=== PATIENT | male | born 1960 | race Two or more races ===

== ENCOUNTER → 2022-01-01 | Outpatient (CLI) | payer OTHER ==
[~2022-01-01] MED LIST: ALLO300T2 PO; AMLO-213 PO; CARV12.52 PO; DOCU100C36 PO; GLIP2.5T3 PO; LOSA100T31 PO; METF-442 PO; OMEP40CA21 PO; OXYC1TAB12 PO; RIVA10TA PO; SIMV-49 PO
== END | disposition home or self-care (01) ==
LOC: LAB 12:49
PROVIDERS: ATTEND Specialist
DX: Z01.812 Encounter for preprocedural laboratory examination (principal); Z20.822 Contact with and (suspected) exposure to COVID-19
CPT/HCPCS: U0003; C9803

== ENCOUNTER 2022-01-08 05:33 | Inpatient (IN) | payer OTHER ==
[~2022-01-08] VITALS: Ht 188 cm; Wt 131.5 kg
--- NOTE | 2022-01-08 06:00 | NUR ---
MS ACID TANK CLEANER NOTES PT WALKED IN TO THE UNIT FROM HOME AT 0547 UNDER THE CARE OF DR. CHRISTINA FOR HIS SCHEDULED RIGHT TOTAL KNEE ARTHROPLASTY. PT IS A/O X4, ABLE TO MAKE NEEDS KNOWN. NO SOB OR NOTED. TOLERATING ROOM AIR WELL. NOT IN APPARENT DISTRESS. NO C/O PAIN OR DISCOMFORT AT THIS TIME. SKIN INTACT. OBTAINED CONSENT. PRE-OP TEACHING GIVEN. ALL NEEDS ATTENDED. SAFETY MEASURES IN PLACED.
[2022-01-08] MEDS ORDERED: MAGNESIUM HYDROXIDE 30 ML UDC PO PRN ×2 (06:30→22:00)
[2022-01-08] MEDS ORDERED: oxyCODONE IR immediate release 5 MG PO PRN (06:30)
[2022-01-08] MEDS ORDERED: MAG HYDROX/AL HYDROX/SIMETH 30 ML UDC PO PRN ×2 (06:30→13:00)
[2022-01-08] MEDS ORDERED: ONDANSETRON HCL/PF 4 MG/2 ML VIAL IV PRN (06:30)
[2022-01-08] MEDS ORDERED: diphenhydrAMINE HCL 25 MG CAPSULE PO PRN (06:30)
[2022-01-08] MEDS ORDERED: CLONIDINE HCL 0.1 MG TABLET PO PRN (06:30)
[2022-01-08] MEDS ORDERED: FENTANYL PF 100MCG/2ML AMPUL ONE ×2 (06:51)
[2022-01-08] MEDS ORDERED: HYDROMORPHONE INJ 2 MG/ML DISP.SYRIN ONE (06:52)
[2022-01-08] MEDS ORDERED: FAMOTIDINE/PF INJ 20 MG/2 ML VIAL IV ONE (06:52)
[2022-01-08] MEDS ORDERED: MIDAZOLAM HCL 2 MG/2ML VIAL ONE (06:52)
[2022-01-08] MEDS ORDERED: SUCCINYLCHOLINE CHLORIDE 20 MG/ML VIAL ONE (06:53)
[2022-01-08] MEDS ORDERED: TRANEXAMIC ACID 3,000 MG in SODIUM CHLORIDE IRRIG SOLUTION 70 ML IR ONE (07:00)
--- NOTE | 2022-01-08 07:00 | NUR ---
MS RN NOTES PT WAS TRANSFERRED TO OR.
--- NOTE | 2022-01-08 07:30 | NUR ---
RN NOTES PATIENT LEFT UNIT FOR SURGERY AT 720 AM.
[2022-01-08] MEDS ORDERED: IV LR 1000 ML 1,000 ML IV PRN (11:00)
--- NOTE | 2022-01-08 11:00 | NUR ---
RN NOTES PATIENT CAME BACK FROM RIGHT KNEE SURGERY AT 1050 AM WITH THE OR NURSE MOLINA. VITAL SIGNS 131/68, P=79, O2 =97%EA. VITAL SIGNS IN NORMAL RANGES. COMPLAINS OF PAIN 5/10 OXYCODONE 10 MG GIVEN. ALERT AND ORIENTED TIMES 4. NO DISTRESS NOTED . NO SOB NOTED. AT BED SIDE. OFFERED LIQUIDS. ON LR 100ML/HR. WILL CONTINUE TO MONITOR.
[2022-01-08] MEDS: oxyCODONE IR immediate release 5 MG PO PRN (11:07)
[2022-01-08 12:00] VITALS: BP 127/60
[2022-01-08] MEDS: HYDROMORPHONE 1 MG/1 ML DISP.SYRIN SQ PRN (12:45)
[2022-01-08] MEDS ORDERED: DEXTROSE 50%-WATER 50 ML DISP.SYRIN IV PRN (13:00)
[2022-01-08] MEDS ORDERED: ONDANSETRON HCL/PF 4 MG/2 ML VIAL IVP PRN (13:00)
[2022-01-08] MEDS ORDERED: Z GUARD REMEDY 4 OZ OINT TP PRN (13:00)
[2022-01-08] MEDS ORDERED: ACETAMINOPHEN 325 MG TABLET PO PRN (13:00)
[2022-01-08] MEDS: HYDROMORPHONE 1 MG/1 ML DISP.SYRIN IM/IV/SC PRN ×3 (15:49→20:40)
[2022-01-08 16:25] VITALS: BP 122/71
[2022-01-08] MEDS: ANCEF 1 GM/50 ML D5W IV SCH ×2 (16:29)
[2022-01-08] MEDS: DOCUSATE SODIUM 100 MG CAPSULE PO SCH (16:51)
[2022-01-08] MEDS: BLOOD SUGAR DIAGNOSTIC 1 EACH STRIP IN SCH ×2 (17:14→22:31)
--- NOTE | 2022-01-08 17:19 | NUR ---
RN NOTES BLOOD SUGAR NOTED 208. PATIENT REFUSED INSULIN.
--- NOTE | 2022-01-08 19:15 | NUR ---
MS RN NOTES RECEIVED LAYING ON BED,A/O X4,S/P RIGHT TOTAL KNEE ARTHROPLASTY TODAY 01/08/[address] CHRISTINA,DRESSING INTACT AND DRY,SCD IN USED ON LEFT LEG,PRESENT IVF LR AT 100ML/HR RATE INFUSING WELL ON RIGHT AC SALINE LOCK VIA IV PUMP.WILL MONITOR FOR PAIN,CALL LIGHT IN REACH,NEEDS ANTICIPATED.
--- NOTE | 2022-01-08 19:30 | NUR ---
MS RN CLOSING NOTES PATIENT RESTING ON BED COMFORTABLY. BED SIDE. ALL DUE MEDS GIVEN ORDERED. ALERT AND ORIENTED TIMES 4. NO PAIN NOTED. NO DISTRESS NOTED. IV ACCESS ON THE RIGHT AC INTACT, RUNNING LR AT 100ML/HR. ALL SAFETY MEASURES IN PLACE. SIDE RAILS UP TIMES 2. BED LOCKED IN THE LOWEST POSITION .CALL LIGHT AND TABLE IN EASY REACH. WILL ENDORSE FOR WILLIE.
[2022-01-08 20:00] VITALS: BP 153/67
[2022-01-08 20:02] VITALS: BP 153/67
--- NOTE | 2022-01-08 20:40 | NUR ---
MS RN NOTES PAIN MANAGEMENT C/O RIGHT KNEE PAIN 7/10 ON PAIN SCALE,MEDICATED WITH DILAUDID .5MG,GIVEN IV PER PATIENT REQUEST.VITAL SIGNS STABLE.
[2022-01-08] MEDS ORDERED: PANTOPRAZOLE 40 MG TABLET.DR PO SCH (22:00)
[2022-01-08] MEDS ORDERED: ZOLPIDEM TARTRATE 5 MG TABLET PO PRN (22:00)
--- NOTE | 2022-01-08 22:00 | NUR ---
MS RN NOTES ACCU-CHECK BLOOD SUGAR CHECK 151,2 UNITS HUMULIN R 2 UNITS REFUSED BY PATIENT.
[2022-01-08] MEDS: INSULIN REGULAR, HUMAN 100 UNIT/ML 3 ML VIAL SQ PRN (22:38)
[2022-01-09] MEDS: ANCEF 1 GM/50 ML D5W IV SCH ×2 (00:04)
[2022-01-09] MEDS: HYDROMORPHONE 1 MG/1 ML DISP.SYRIN SQ PRN ×3 (00:50→13:26)
--- NOTE | 2022-01-09 00:50 | NUR ---
MS RN NOTES PAIN MANAGEMENT AWAKE,HAVING PAIN THIS TIME 8-9/10 ON PAIN SCALE.MEDICATED WITH DILAUDID 1MG,GIVEN SQ ON RIGHT DELTOID ORDERED.VITAL SIGNS STABLE.
--- NOTE | 2022-01-09 05:30 | NUR ---
MS RN NOTES ACCU-CHECK BLOOD SUGAR CHECK 173,COVERED WITH HUMULIN 3 UNITS PER SLIDING SCALE.
[2022-01-09 06:27] LABS: BASOPHILS % (AUTO) 0.6 % (0.0-2.0); EOSINOPHILS % (AUTO) 1.7 % (0.0-6.0); HEMATOCRIT 32 % (39-51); HEMOGLOBIN 10.5 g/dL (13.5-17.5); LYMPHOCYTES # (AUTO) 0.7 K/uL (0.8-4.8); LYMPHOCYTES % (AUTO) 9.2 % (20.0-44.0); MEAN CORPUSCULAR HGB CONC 32 g/dl (31.0-36.0); MEAN CORPUSCULAR VOLUME 80 fL (80-96); MONOCYTES # (AUTO) 0.5 K/uL (0.1-1.30); MONOCYTES % (AUTO) 6.5 % (2.0-12.0); NEUTROPHILS # (AUTO) 6.5 K/uL (1.8-8.9); PLATELET COUNT (AUTO) 185 K/uL (150-450); RED BLOOD CELL COUNT(AUTO) 4.05 MIL/uL (4.5-6.0); WHITE BLOOD COUNT (AUTO) 7.9 K/uL (4.3-11.0)
[2022-01-09] MEDS: BLOOD SUGAR DIAGNOSTIC 1 EACH STRIP IN SCH ×2 (06:30→11:42)
[2022-01-09] MEDS: INSULIN REGULAR, HUMAN 100 UNIT/ML 3 ML VIAL SQ PRN ×2 (06:37→11:51)
[2022-01-09] MEDS: oxyCODONE IR immediate release 5 MG PO PRN (06:40)
--- NOTE | 2022-01-09 06:40 | NUR ---
MS RN NOTES PAIN MANAGEMENT C/O RIGHT KNEE PAIN ABOUT 3/10- ON PAIN SCALE,MEDICATED WITH OXY IR 10MG PO PER PATIENT REQUEST.
[2022-01-09 06:55] LABS: CALCIUM, SERUM 8.7 mg/dL (8.5-10.1); MAGNESIUM 1.6 mg/dL (1.8-2.4); PHOSPHORUS 3.5 mg/dL (2.5-4.9); POTASSIUM 3.5 mmol/L (3.5-5.1)
--- NOTE | 2022-01-09 06:57 | NUR ---
MS RN NOTES FAIRLY RESTED,PAIN MANAGEMENT EFFECTIVE,,FOR PT,AMBULATION TODAY.IN NO ACUTE DISTRESS.
--- NOTE | 2022-01-09 07:00 | NUR ---
MS RN OPENING NOTES PATIENT LAYING IN BED, A/O X 4, ABLE TO MAKE NEEDS KNOWN, TOLERATING WELL ON ROOM AIR WITH NO S/S RESPIRATORY DISTRESS. NO COMPLAINS OF PAIN OR DISCOMFORT AT THIS TIME. R KNEE WITH DRESSING IN PLACE C/D/I. L AC # 20 IV WITH LR INFUSING @ 100 ML/HR. [place] CATHETER IN PLACE DRAINING CLEAR YELLOW URINE TO GRAVITY. SAFETY MEASURES IN PLACE: BED IN LOWEST LOCKED POSITION, SIDE RAILS UP X 2, CALL LIGHT WITHIN REACH. WILL CONTINUE TO MONITOR.
[2022-01-09 08:00] VITALS: BP 154/76
[2022-01-09] MEDS ORDERED: oxyCODONE IR immediate release 5 MG PO ONE (08:56)
[2022-01-09] MEDS: DOCUSATE SODIUM 100 MG CAPSULE PO SCH (09:05)
[2022-01-09] MEDS: Magnesium 1GM/D5W 100ML PREMIX 100 ML IV SCH ×2 (09:05→10:07)
[2022-01-09] MEDS ORDERED: ALLO300T2 PO (10:20)
[2022-01-09] MEDS ORDERED: OXYC1TAB12 PO (10:20)
[2022-01-09] MEDS ORDERED: METF-442 PO (10:20)
[2022-01-09] MEDS ORDERED: AMLO-213 PO (10:20)
[2022-01-09] MEDS ORDERED: OMEP40CA21 PO (10:20)
[2022-01-09] MEDS ORDERED: RIVA10TA PO (10:20)
[2022-01-09] MEDS ORDERED: LOSA100T31 PO (10:20)
[2022-01-09] MEDS ORDERED: SIMV-49 PO (10:20)
[2022-01-09] MEDS ORDERED: CARV12.52 PO (10:20)
[2022-01-09] MEDS ORDERED: GLIP2.5T3 PO (10:20)
[2022-01-09] MEDS ORDERED: DOCU100C36 PO (12:09)
--- NOTE | 2022-01-09 14:00 | NUR ---
MS HERNANDEZCORE BLOWER NOTES PATIENT MADE AWARE OF MD DISCHARGE ORDERS AND INSTRUCTIONS. PATIENT VERBALIZED UNDERSTANDING OF MD DISCHARGE ORDERS AND SIGNED DISCHARGE INSTRUCTIONS SHEET. PATIENT VERBALIZED POSSESSION OF ALL BELONGINGS AND SIGNED BELONGINGS SHEET. IV LINE AND ID BANDS REMOVED. PATIENT ASSISTED TO WHEELCHAIR BY PROFESSOR OF CRIMINAL JUSTICE AND TRANSPORTED OFF OF UNIT ACCOMPANIED BY PROFESSOR OF CRIMINAL JUSTICE. COPIES OF ALL PAPERWORK PROVIDED TO PATIENT, AND PATIENT STABLE AT TIME OF DISCHARGE. Addendum: 01/09/22 at 1615 by CARLINE SUTHERLAND RN PRN PAIN MEDICATION ADMINISTERED THROUGHOUT SHIFT NEEDED
[2022-01-09] MEDS ORDERED: RIVAROXABAN 10 MG TABLET PO SCH (17:00)
== END 2022-01-09 13:57 | disposition home or self-care (01) | DRG 470 ==
LOC: DS 05:33 → MED 05:35
PROVIDERS: ADMIT Nurse Practitioner Acute Care; ATTEND Nurse Practitioner Acute Care
PROC: 0SRC0J9 Replacement of Right Knee Joint with Synthetic Substitute, Cemented, Open Approach (ICD-10-PCS; principal; 2022-01-08)
DX: M17.11 Unilateral primary osteoarthritis, right knee (principal); I10 Essential (primary) hypertension; E11.9 Type 2 diabetes mellitus without complications; D64.9 Anemia, unspecified; E78.5 Hyperlipidemia, unspecified; Z98.84 Bariatric surgery status; K21.9 Gastro-esophageal reflux disease without esophagitis; M10.9 Gout, unspecified
CPT/HCPCS: 36415; 80048-TC; 80061-TC; 82962-TC; 83735-TC; 84100-TC; 85025-TC; 87081-TC; 97116-TC; 97530-TC; 97760-TC; A4217; C1713; C1776; G0378; J0330; J0690; J1170; J1815; J2250; J2405; J2704; J2765; J3010; J3475; J3490; J7030; J7040; J7060; J7120